=== PATIENT | male | born 1950 | race Caucasian/White ===

== ENCOUNTER 2017-02-12 22:02 | Observation (INO) | payer MEDICARE, MEDICAID ==
[2017-02-12] MEDS ORDERED: Sodium Chloride 0.9% 1,000 ML IV STA (22:48)
[2017-02-12] MEDS ORDERED: Morphine 2 mg/ml ISec IVP STA (22:48)
--- NOTE | 2017-02-12 22:50 | ED PDOC ---
Arrival/HPI - General Chief Complaint: Abdominal Pain Time Seen by Provider: 02/12/17 22:44 Historian: Patient, Family - History of Present Illness Narrative History of Present Illness (Text): 02/12/17 22:48 Barbara Mcmillan is a 66 year old male, with no significant past medical history, who presents to the ED complaining of nausea and vomiting. Patient states he has been experiencing nausea with associated vomiting, diarrhea, and LLQ pain since this morning. Patient also reports some dizziness. Patient denies any fever, chills, chest pain, shortness of breath, back pain, neck pain , or any other complaints. Symptom Onset: Gradual Symptom Course: Unchanged Activities at Onset: Light Context: Home Past Medical History - Provider Review Nursing Documentation Reviewed: Yes - Infectious Disease Hx of Infectious Diseases: None - Psychiatric Hx Substance Use: No - Anesthesia Hx Anesthesia: No Family/Social History - Physician Review Nursing Documentation Reviewed: Yes Family/Social History: Unknown Family HX Smoking Status: Never Smoked Hx Alcohol Use: No Hx Substance Use: No Allergies/Home Meds Allergies/Adverse Reactions: Allergies Penicillins Allergy (Unknown, Verified 05/23/16 15:00) Home Medications: Home Meds Medication Instructions Recorded Confirmed No Known Home Med 02/12/17 02/12/17 Review of Systems - Physician Review All systems were reviewed & negative as marked: Yes - Review of Systems Constitutional: Normal. absent: Fevers Eyes: Normal ENT: Normal Respiratory: Normal. absent: SOB, Cough Cardiovascular: Normal. absent: Chest Pain Gastrointestinal: Abdominal Pain, Diarrhea, Nausea, Vomiting Genitourinary Male: Normal. absent: Dysuria, Frequency, Hematuria, Urinary Output Changes Musculoskeletal: Normal. absent: Back Pain, Neck Pain Skin: Normal. absent: Rash Neurological: Dizziness Endocrine: Normal Hemo/Lymphatic: Normal Psychiatric: Normal Physical Exam Vital Signs Reviewed: Yes Vital Signs Temp Pulse Resp BP Pulse Ox 02/12/17 22:02 97.6 F 86 12 155/84 H 98 Temperature: Afebrile Blood Pressure: Normal Pulse: Regular Respiratory Rate: Normal Appearance: Positive for: Well-Appearing, Non-Toxic, Comfortable Pain Distress: None Mental Status: Positive for: Alert and Oriented X 3 - Systems Exam Head: Present: Atraumatic, Normocephalic Pupils: Present: PERRL Extroacular Muscles: Present: EOMI Conjunctiva: Present: Normal Mouth: Present: Moist Mucous Membranes Neck: Present: Normal Range of Motion Respiratory/Chest: Present: Clear to Auscultation, Good Air Exchange. No: Respiratory Distress, Accessory Muscle Use Cardiovascular: Present: Regular Rate and Rhythm, Normal S1, S2. No: Murmurs Abdomen: Present: Tenderness (LLQ tenderness), Normal Bowel Sounds. No: Distention, Peritoneal Signs Back: Present: Normal Inspection Upper Extremity: Present: Normal Inspection. No: Cyanosis, Edema Lower Extremity: Present: Normal Inspection. No: Edema Neurological: Present: GCS=15, CN II-XII Intact, Speech Normal Skin: Present: Warm, Dry, Normal Color. No: Rashes Psychiatric: Present: Alert, Oriented x 3, Normal Insight, Normal Concentration Medical Decision Making ED Course and Treatment: 02/12/17 22:48 Impression: 66 year old male c/o nausea, vomiting, diarrhea, LLQ pain, and dizziness today. Plan: -- CT Abdomen and Pelvis with IV contrast -- EKG -- Labs, lipase -- IV fluids -- Reassess and disposition Progress Notes: Reviewed EKG, NSR at 86 bpm. 1st degree AV block. Non-specific changes. 02/13/17 02:20 Reviewed radiology, CT Abdomen and Pelvis shows: Fatty liver; no acute solid visceral abnormality, no renal or ureteral stones or hydronephrosis; enterocolitis; nonspecific inflammation in the upper mesentery; bibasilar airspace disease atelectasis and/or infiltrate Additional findings as described above. 02/13/17 02:[address] Jamil, covering for Dr. Pate, who requests pt go to hospitalist service. 02/13/17 02:47 Case discussed with director medical science molten iron pourer, who is aware and agrees with plan. 02/13/17 02:[address] Rogers, who is aware and agrees with plan. Accepts pt in to hospitalist service. Pt will go [facility] observation for intractable abdominal pain. - Lab Interpretations Lab Results: 02/12/17 23:30 02/12/17 23:30 Lab Results 02/12/17 23:30: WBC 10.5, RBC 5.13, Hgb 15.4, Hct 44.5, MCV 86.7, MCH 30.0, MCHC 34.6, RDW 13.4, Plt Count 166, MPV 9.8 02/12/17 23:30: Sodium 139, Potassium 4.2, Chloride 103, Carbon Dioxide 27, Anion Gap 13, BUN 12, Creatinine 0.6, Est GFR ( Amer) > 60, Est GFR (Non- Af Amer) > 60, Random Glucose 139 H, Calcium 9.3, Total Bilirubin 0.9, AST 28, ALT 41, Alkaline Phosphatase 70, Total Protein 7.3, Albumin 4.3, Globulin 3.0, Albumin/Globulin Ratio 1.4, Lipase 51 I have reviewed the lab results: Yes - RAD Interpretation Narrative RAD Interpretations (Text): CT Abdomen and Pelvis shows: Lower thorax: Heart size is normal. There is airspace disease at the lung bases. There are no effusions. ABDOMEN: Liver: There is fatty infiltration of the liver. Gallbladder and bile ducts: Gallbladder is partially distended. Common duct is prominent. Pancreas: Pancreas is mildly atrophic. Spleen: Spleen is unremarkable. There is an accessory spleen in the left upper quadrant. Adrenals: unremarkable Kidneys and ureters: Kidneys and ureters are unremarkable. There no renal or ureteral stones. Stomach and bowel: Stomach is partially distended with fluid. There is an air- fluid level. There is mild duodenal wall and fold thickening and enhancement. Rotation is normal. There is a small fatty nodule at the duodenal jejunal junction, enteric contents versus lipoma. There is mild proximal jejunal wall and fold thickening. There is mild distention. Small bowel distention and wall thickening decreases distally. Terminal ileum is unremarkable. Appendix is not visualized.There is no pericecal inflammation. There is fatty infiltration of the cecal and ascending colon vu.Colon is incompletely distended which limits evaluation. There is scattered diverticulosis. There is mild distal sigmoid and rectal wall thickening Appendix: See stomach and bowel PELVIS: Bladder: unremarkable Reproductive: Seminal vesicles and prostate are unremarkable. ABDOMEN and PELVIS: Intraperitoneal space: There is no free air or free fluid. Bones/joints: There are degenerative changes in the osseus structures. Soft tissues: There is mild rectus diastases. Vasculature: There are vascular calcifications. Lymph nodes: There is no pathologic adenopathy. Other findings: There is mild increased attenuation in the upper mesentery. IMPRESSION: Fatty liver; no acute solid visceral abnormality, no renal or ureteral stones or hydronephrosis; enterocolitis; nonspecific inflammation in the upper mesentery; bibasilar airspace disease atelectasis and/or infiltrate Additional findings as described above. Radiology Orders: 02/12/17 22:49 ABD & PELVIS IV CONTRAST ONLY [CT] Stat Hobbing Machine Operator: Radiologist - EKG Interpretation Interpreted by ED Physician: Yes Type: 12 lead EKG - Medication Orders Current Medication Orders: Discontinued Medications Famotidine (Pepcid) 20 mg IVP STAT STA Stop: 02/12/17 22:49 Last Admin: 02/12/17 23:44 Dose: 20 mg Sodium Chloride (Sodium Chloride 0.9%) 1,000 mls @ 999 mls/hr IV .Q1H1M STA Stop: 02/12/17 23:48 Last Admin: 02/12/17 23:44 Dose: 999 mls/hr Iohexol (Omnipaque 350 100 Ml) Confirm Administered Dose 350 mg .ROUTE .STK-MED ONE Stop: 02/13/17 01:01 Morphine Sulfate (Morphine) 2 mg IVP STAT STA Stop: 02/12/17 22:49 Last Admin: 02/12/17 23:44 Dose: 2 mg Re-Assess: ADRIANA Pain Assessment Document 02/13/17 00:44 JOL (Rec: 02/13/17 01:50 JOL [id number]) Pain Reassessment Is this a pain reassessment? Yes Sleep Is patient sleeping during reassessment? No Presence of Pain Presence of Pain No Ondansetron HCl (Zofran Inj) 4 mg IVP ONCE ONE Stop: 02/12/17 22:49 Last Admin: 02/12/17 23:44 Dose: 4 mg - Marleniibradha Statement The provider has reviewed the documentation as recorded by the Sarmad Zee All medical record entries made by the Sarmad were at my direction and personally dictated by me. I have reviewed the chart and agree that the record accurately reflects my personal performance of the history, physical exam, medical decision making, and the department course for this patient. I have also personally directed, reviewed, and agree with the discharge instructions and disposition. Disposition/Present on Arrival - Present on Arrival Any Indicators Present on Arrival: No History of DVT/PE: No History of Uncontrolled Diabetes: No Urinary Catheter: No History of Decub. Ulcer: No History Surgical Site Infection Following: None - Disposition Have Diagnosis and Disposition been Completed?: Yes Diagnosis: Intractable abdominal pain, Enterocolitis Disposition: HOSPITALIZED Disposition Time: 02:53 Patient Plan: Observation Patient Problems: Current Active Problems Problem Status Onset Intractable abdominal pain Acute Condition: STABLE Referrals: Katlyn Tate MD [Primary Care Provider] - Follow up with primary Forms: [employer] (H[place]er)
[2017-02-12 23:55] LABS: ALB/GLOB RATIO 1.4 (1.1-1.8); ALKALINE PHOSPHATASE 70 U/L (38-126); ALT/SGPT 41 U/L (7-56); AST/SGOT 28 U/L (17-59); BILIRUBIN,TOTAL 0.9 mg/dL (0.2-1.3); BLOOD UREA NITROGEN 12 mg/dL (7-21); CALCIUM 9.3 mg/dL (8.4-10.5); CARBON DIOXIDE 27 mmol/L (21-33); CHLORIDE 103 mmol/L (98-107); GFR AFRICAN-AMERICAN > 60; GLUCOSE,RANDOM 139 mg/dL (70-110); LIPASE 51 U/L (23-300); POTASSIUM 4.2 mmol/L (3.6-5.0); SODIUM 139 mmol/L (132-148); TOTAL PROTEIN 7.3 g/dL (5.8-8.3)
[2017-02-12 23:59] LABS: HEMATOCRIT 44.5 % (42.0-52.0); WHITE BLOOD COUNT 10.5 10^3/ul (4.5-11.0)
[2017-02-13] LABS: MEAN CELL VOLUME 86.7 fl (80.0-105.0); MEAN CORPUSCULAR HGB CONC 34.6 g/dl (31.0-37.0); MEAN PLATELET VOLUME 9.8 fl (7.0-11.0); RED CELL DISTRIBUTION WIDTH 13.4 % (11.5-14.5)
[2017-02-13] MEDS ORDERED: Iohexol 350 MG/100 ML VIAL ONE (01:00)
--- NOTE | 2017-02-13 02:07 | CT ---
EXAM: CT Abdomen and Pelvis With Intravenous Contrast EXAM DATE/TIME: 02/12/2017 10:49 PM CLINICAL HISTORY: 66 years old, male; Pain; Abdominal pain; Flank; Left lower quadrant (llq); Additional info: Left lower abdominal pain TECHNIQUE: Axial computed tomography images of the abdomen and pelvis with intravenous contrast. All CT scans at this facility use one or more dose reduction techniques, viz.: automated exposure control; ma/kV adjustment per patient size (including targeted exams where dose is matched to indication; i.e. head); or iterative reconstruction technique. Coronal and sagittal reformatted images were created and reviewed. CONTRAST: 96 mL of OMNI 350 administered intravenously. COMPARISON: There are no prior studies for comparison. FINDINGS: Lower thorax: Heart size is normal. There is airspace disease at the lung bases. There are no effusions. ABDOMEN: Liver: There is fatty infiltration of the liver. Gallbladder and bile ducts: Gallbladder is partially distended. Common duct is prominent. Pancreas: Pancreas is mildly atrophic. Spleen: Spleen is unremarkable. There is an accessory spleen in the left upper quadrant. Adrenals: unremarkable Kidneys and ureters: Kidneys and ureters are unremarkable. There no renal or ureteral stones. Stomach and bowel: Stomach is partially distended with fluid. There is an air-fluid level. There is mild duodenal wall and fold thickening and enhancement. Rotation is normal. There is a small fatty nodule at the duodenal jejunal junction, enteric contents versus lipoma. There is mild proximal jejunal wall and fold thickening. There is mild distention. Small bowel distention and wall thickening decreases distally. Terminal ileum is unremarkable. Appendix is not visualized.There is no pericecal inflammation. There is fatty infiltration of the cecal and ascending colon vu.Colon is incompletely distended which limits evaluation. There is scattered diverticulosis. There is mild distal sigmoid and rectal wall thickening Appendix: See stomach and bowel PELVIS: Bladder: unremarkable Reproductive: Seminal vesicles and prostate are unremarkable. ABDOMEN and PELVIS: Intraperitoneal space: There is no free air or free fluid. Bones/joints: There are degenerative changes in the osseus structures. Soft tissues: There is mild rectus diastases. Vasculature: There are vascular calcifications. Lymph nodes: There is no pathologic adenopathy. Other findings: There is mild increased attenuation in the upper mesentery. IMPRESSION: Fatty liver; no acute solid visceral abnormality, no renal or ureteral stones or hydronephrosis; enterocolitis; nonspecific inflammation in the upper mesentery; bibasilar airspace disease atelectasis and/or infiltrate Additional findings as described above.
[2017-02-13] MEDS ORDERED: metroNIDAZOLE IV 500 mg/100 ml 500 MG/100 ML BAG IVPB STA (03:02)
[2017-02-13] MEDS ORDERED: Ciprofloxacin 400mg/200ml D5W 400 MG/200 ML BAG IV STA (03:02)
[2017-02-13] MEDS ORDERED: Morphine 2 mg/ml ISec IM PRN (03:35)
--- NOTE | 2017-02-13 03:44 | CP.PCM.HP ---
<Colton Mccloud - Last Filed: 02/13/17 03:57> History of Present Illness - History of Present Illness History of Present Illness: 66 yo korean speaking male with no significant PMH complaining of abdominal pain. He describes the pain as a sharp stabbing pain with a severity of 10/10. He states the pain is located in the left abdominal area and doesn't radiate and that it began 24 hours ago. He also says that he has N/V/diarrhea and dizziness. He described the vomit as being yellowish and watery. He stated the diarrhea was watery. He denies any blood in the vomit or stool. In addition the last thing he ate was 2 eggs with some cheese. He denies any SOB, CP, palpitations, fevers, chills, or back pain. PMH: none significant PSH: denies Social: denies alcohol or tobacco use FH: nothing significant allergies: Penicillin Medications: none Present on Admission - Present on Admission Any Indicators Present on Admission: No Review of Systems - Constitutional Constitutional: absent: Chills, Fever - EENT Eyes: absent: Loss of Vision Ears: absent: Ear Pain - Cardiovascular Cardiovascular: absent: Chest Pain, Diaphoresis, Dyspnea - Respiratory Respiratory: absent: Cough, Dyspnea - Gastrointestinal Gastrointestinal: Abdominal Pain, Diarrhea, Nausea, Vomiting - Neurological Neurological: Dizziness Past Patient History - Infectious Disease Hx of Infectious Diseases: None - Past Social History Smoking Status: Never Smoked - PSYCHIATRIC Hx Substance Use: No - SURGICAL HISTORY Hx Surgeries: No - ANESTHESIA Hx Anesthesia: No Meds Allergies/Adverse Reactions: Allergies Allergy/AdvReac Type Severity Reaction Status Date / Time Penicillins Allergy Unknown Verified 05/23/16 15:00 Physical Exam - Constitutional Appears: Non-toxic, No Acute Distress - Head Exam Head Exam: ATRAUMATIC, NORMAL INSPECTION, NORMOCEPHALIC - Eye Exam Eye Exam: Normal appearance, PERRL - Respiratory Exam Respiratory Exam: Clear to Auscultation Bilateral, NORMAL BREATHING PATTERN - Cardiovascular Exam Cardiovascular Exam: REGULAR RHYTHM, +S1, +S2 - GI/Abdominal Exam GI & Abdominal Exam: Tenderness Additional comments: tenderness to palpation in left upper and left lower quadrants - Extremities Exam Extremities exam: Negative for: pedal edema - Neurological Exam Neurological exam: Alert, Oriented x3 Results - Vital Signs Recent Vital Signs: Last Vital Signs Temp 97.6 F 02/12/17 22:02 Pulse 86 02/12/17 22:02 Resp 12 02/12/17 22:02 BP 155/84 H 02/12/17 22:02 Pulse Ox 98 02/12/17 22:02 - Labs Result Diagrams: 02/12/17 23:30 02/12/17 23:30 Assessment & Plan - Assessment and Plan (Free Text) Assessment: 66 yo male with no significant past medical history presenting with abdominal pain. He is being worked up for possible enterocolitis. Plan: 1. Abdominal Pain- likely due to viral cause -CT Abdomen and pelvis was ordered and obtained. CT showed a fatty liver, no visceral abnormality, but showed non specific inflammation of the upper mesentery. -patient put on NPO for bowel rest - CBC and chemistry ordered and obtained, no leukocytosis or electrolyte abnormalities -stool, urine and blood cultures ordered -NS @150ml/hr -Started on Flagyl 500 Q8H -Started on Cipro 400 q12H -started on morphine IV 2mg Q4H PRN -patient admitted to med surg <Jaden Rogers MD - Last Filed: 02/13/17 08:39> Results - Vital Signs Recent Vital Signs: Last Vital Signs Temp 98.1 F 02/13/17 08:33 Pulse 95 H 02/13/17 08:33 Resp 20 02/13/17 08:33 BP 144/87 02/13/17 08:33 Pulse Ox 97 02/13/17 08:33 - Labs Result Diagrams: 02/12/17 23:30 02/12/17 23:30 Attending/Attestation - Attestation I have personally seen and examined this patient.: Yes I have fully participated in the care of the patient.: Yes I have reviewed all pertinent clinical information: Yes Notes (Text): -I agree with the above H&P completed by the resident physician, with the following additions and/or changes: The patient is a 66 year old man with no significant past medical history who is being admitted for acute entercolitis (confirmed by CT scan). He will be started on empiric IV Cipro/Flagyl and aggressive IVF's. He will be kept NPO for bowel rest. IV Morphine and Zofran as needed for symptomatic relief.
[2017-02-13] MEDS ORDERED: metroNIDAZOLE IV 500 mg/100 ml 500 MG/100 ML BAG IVPB SCH ×2 (03:45→14:00)
[2017-02-13] MEDS ORDERED: Sodium Chloride 0.9% 1,000 ML IV SCH (03:45)
[2017-02-13 05:40] VITALS: RESP 20
[2017-02-13 08:34] VITALS: BP 144/87; PULSE 95; TEMP 98.1; O2SAT 97
[2017-02-13 09:51] LABS: BASO # 0.02 K/mm3 (0.0-2.0); BASO % 0.2 % (0.0-3.0); EOS # 0.1 (0.0-0.7); EOS % 0.6 % (1.5-5.0); GRAN # 8.82 (1.4-6.5); GRAN % 85.2 % (50.0-68.0); HEMATOCRIT 41.4 % (42.0-52.0); LYMPH # 0.7 (1.2-3.4); LYMPH % 6.7 % (22.0-35.0); MEAN CORPUSCULAR HEMOGLOBIN 30.3 pg (25.0-35.0); MEAN CORPUSCULAR HGB CONC 34.8 g/dl (31.0-37.0); MEAN PLATELET VOLUME 9.5 fl (7.0-11.0); MONO # 0.8 (0.1-0.6); MONO % 7.3 % (1.0-6.0); RED CELL DISTRIBUTION WIDTH 12.9 % (11.5-14.5); WHITE BLOOD COUNT 10.4 10^3/ul (4.5-11.0)
[2017-02-13 09:59] LABS: BLOOD UREA NITROGEN 9 mg/dL (7-21); CARBON DIOXIDE 26 mmol/L (21-33); CHLORIDE 103 mmol/L (95-110); GFR AFRICAN-AMERICAN > 60; GLUCOSE,RANDOM 96 mg/dL (70-110); POTASSIUM 3.6 mmol/L (3.6-5.0); SODIUM 139 mmol/L (132-148)
[2017-02-13] MEDS ORDERED: Ciprofloxacin 400mg/200ml D5W 400 MG/200 ML BAG IVPB SCH (10:00)
--- NOTE | 2017-02-13 10:10 | US ---
HISTORY: rule out cholycystitis COMPARISON: None. TECHNIQUE: Sonographic evaluation of the abdomen. FINDINGS: LIVER: Measures 14.4 cm. Diffusely increased echogenicity of the liver parenchyma. No mass. No intrahepatic bile duct dilatation. GALLBLADDER: Unremarkable. No gallstones. COMMON BILE DUCT: Measures 6 mm. No stones. No dilatation. PANCREAS: Limited visualization. No gross abnormality identified. RIGHT KIDNEY: Measures 10.0cm. Normal echogenicity. No calculus, mass, or hydronephrosis. LEFT KIDNEY: Measures 10.6cm. Normal echogenicity. No calculus, mass, or hydronephrosis. SPLEEN: Normal in size and contour. No mass. AORTA: No aneurysmal dilatation. IVC: Unremarkable. OTHER FINDINGS: None. IMPRESSION: Fatty infiltration of the liver. No evidence of cholelithiasis or cholecystitis.
--- NOTE | 2017-02-13 17:18 | CARD ---
APPROVED REPORT EKG Measurement Heart [id number] <Conclusion> Sinus rhythm with 1st degree AV block Otherwise normal ECG
--- NOTE | 2017-02-14 00:45 | CP.PCM.DIS ---
<OLEGARIO CHOI - Last Filed: 02/14/17 00:38> Provider - Provider Date of Admission: 02/13/17 03:03 Attending physician: Owen Flowers MD Primary care physician: Katlyn Tate MD Time Spent in preparation of Discharge (in minutes): 40 Hospital Course - Lab Results Lab Results: Most Recent Lab Values WBC 10.4 10^3/ul (4.5-11.0) 02/13/17 09:30 RBC 4.76 10^6/uL (3.5-6.1) 02/13/17 09:30 Hgb 14.4 g/dL (14.0-18.0) 02/13/17 09:30 Hct 41.4 % (42.0-52.0) L 02/13/17 09:30 MCV 87.0 fl (80.0-105.0) 02/13/17 09:30 MCH 30.3 pg (25.0-35.0) 02/13/17 09:30 MCHC 34.8 g/dl (31.0-37.0) 02/13/17 09:30 RDW 12.9 % (11.5-14.5) 02/13/17 09:30 Plt Count 147 10^3/uL (120.0-450.0) 02/13/17 09:30 MPV 9.5 fl (7.0-11.0) 02/13/17 09:30 Gran % 85.2 % (50.0-68.0) H 02/13/17 09:30 Lymph % (Auto) 6.7 % (22.0-35.0) L 02/13/17 09:30 [place] % (Auto) 7.3 % (1.0-6.0) H 02/13/17 09:30 Eos % (Auto) 0.6 % (1.5-5.0) L 02/13/17 09:30 Baso % (Auto) 0.2 % (0.0-3.0) 02/13/17 09:30 Gran # 8.82 (1.4-6.5) H 02/13/17 09:30 Lymph # 0.7 (1.2-3.4) L 02/13/17 09:30 [place] # 0.8 (0.1-0.6) H 02/13/17 09:30 Eos # 0.1 (0.0-0.7) 02/13/17 09:30 Baso # 0.02 K/mm3 (0.0-2.0) 02/13/17 09:30 Sodium 139 mmol/L (132-148) 02/13/17 09:30 Potassium 3.6 mmol/L (3.6-5.0) 02/13/17 09:30 Chloride 103 mmol/L (95-110) 02/13/17 09:30 Carbon Dioxide 26 mmol/L (21-33) 02/13/17 09:30 Anion Gap 14 (10-20) 02/13/17 09:30 BUN 9 mg/dL (7-21) 02/13/17 09:30 Creatinine 0.6 mg/dL (0.5-1.4) 02/13/17 09:30 Est GFR ( Amer) > 60 02/13/17 09:30 Est GFR (Non-Af Amer) > 60 02/13/17 09:30 Random Glucose 96 mg/dL (70-110) 02/13/17 09:30 Calcium 9.0 mg/dL (8.4-10.5) 02/13/17 09:30 Total Bilirubin 0.9 mg/dL (0.2-1.3) 02/12/17 23:30 AST 28 U/L (17-59) 02/12/17 23:30 ALT 41 U/L (7-56) 02/12/17 23:30 Alkaline Phosphatase 70 U/L (38-126) 02/12/17 23:30 Total Protein 7.3 g/dL (5.8-8.3) 02/12/17 23:30 Albumin 4.3 g/dL (3.0-4.8) 02/12/17 23:30 Globulin 3.0 gm/dL 02/12/17 23:30 Albumin/Globulin Ratio 1.4 (1.1-1.8) 02/12/17 23:30 Lipase 51 U/L (23-300) 02/12/17 23:30 - Hospital Course Hospital Course: 66 yo persian speaking male with no significant PMH complaining of abdominal pain. He describes the pain as a sharp stabbing pain with a severity of 10/10. He states the pain is located in the left abdominal area and doesn't radiate and that it began 24 hours ago. He also says that he has N/V/diarrhea and dizziness. He described the vomit as being yellowish and watery and had 3 episodes in total (the last being on admission in ED). He stated he had one episode of diarrhea @ 2AM the day prior to coming into ED that was watery. He denies any blood in the vomit or stool. In addition the last thing he ate was 2 fried eggs with some cheese. He denies any SOB, CP, palpitations, fevers, chills , or back pain. Patient was transferred to the med-surg floors for monitoring. Patient got Abd CT which showed fatty liver and inflammation of upper mesentery. Abd US also showed fatty infiltration of liver with no evidence of cholelithiasis/ cholecystitis. Pt received 2 dose of cipro and flagyl for empiric tx but r/o bacterial infection, and 1L IVF. Likely a viral gastroenteritis. Pt on morning of admission was resting calmly and denied any pain, n/v/d, fevers/chills, cp, abd pain, sob, dysuria. Pt will be d/c and recommended to stay hydrated and f/u PMD in 1-2 weeks. - Date & Time of H&P Date of H&P: 02/13/17 Time of H&P: 03:30 Discharge Exam - Head Exam Head Exam: ATRAUMATIC, NORMAL INSPECTION, NORMOCEPHALIC - Eye Exam Eye Exam: EOMI, Normal appearance, PERRL Pupil Exam: NORMAL ACCOMODATION - ENT Exam ENT Exam: Mucous Membranes Moist - Neck Exam Neck exam: Full Rom - Respiratory Exam Respiratory Exam: Clear to PA & Lateral, NORMAL BREATHING PATTERN. absent: Accessory Muscle Use, Rales, Rhonchi, Wheezes, Respiratory Distress - Cardiovascular Exam Cardiovascular Exam: RRR, +S1, +S2 - GI/Abdominal Exam GI & Abdominal Exam: Normal Bowel Sounds, Soft, Unremarkable. absent: Distended , Guarding, Organomegaly, Rebound, Tenderness - Extremities Exam Extremities exam: full ROM Additional comments: no pedal edema no calf tenderness - Neurological Exam Neurological exam: Alert, Normal Gait, Oriented x3 - Psychiatric Exam Psychiatric exam: Normal Affect, Normal Mood - Skin Skin Exam: Normal Color, Warm Discharge Plan - Follow Up Plan Condition: STABLE Disposition: HOME/ ROUTINE Instructions: Infectious Colitis (GEN) Additional Instructions: - Please follow up with your primary care doctor in 1-2 weeks - Stay hydrated - Stay away from spoiled food. - Please come back if the symptoms persists or worsens. Referrals: Katlyn Tate MD [Primary Care Provider] - <Owen Flowers MD - Last Filed: 02/14/17 16:04> Provider - Provider Date of Admission: 02/13/17 03:03 Attending physician: Owen Flowers MD Primary care physician: Katlyn Tate MD Hospital Course - Lab Results Lab Results: Most Recent Lab Values WBC 10.4 10^3/ul (4.5-11.0) 02/13/17 09:30 RBC 4.76 10^6/uL (3.5-6.1) 02/13/17 09:30 Hgb 14.4 g/dL (14.0-18.0) 02/13/17 09:30 Hct 41.4 % (42.0-52.0) L 02/13/17 09:30 MCV 87.0 fl (80.0-105.0) 02/13/17 09:30 MCH 30.3 pg (25.0-35.0) 02/13/17 09:30 MCHC 34.8 g/dl (31.0-37.0) 02/13/17 09:30 RDW 12.9 % (11.5-14.5) 02/13/17 09:30 Plt Count 147 10^3/uL (120.0-450.0) 02/13/17 09:30 MPV 9.5 fl (7.0-11.0) 02/13/17 09:30 Gran % 85.2 % (50.0-68.0) H 02/13/17 09:30 Lymph % (Auto) 6.7 % (22.0-35.0) L 02/13/17 09:30 [place] % (Auto) 7.3 % (1.0-6.0) H 02/13/17 09:30 Eos % (Auto) 0.6 % (1.5-5.0) L 02/13/17 09:30 Baso % (Auto) 0.2 % (0.0-3.0) 02/13/17 09:30 Gran # 8.82 (1.4-6.5) H 02/13/17 09:30 Lymph # 0.7 (1.2-3.4) L 02/13/17 09:30 [place] # 0.8 (0.1-0.6) H 02/13/17 09:30 Eos # 0.1 (0.0-0.7) 02/13/17 09:30 Baso # 0.02 K/mm3 (0.0-2.0) 02/13/17 09:30 Sodium 139 mmol/L (132-148) 02/13/17 09:30 Potassium 3.6 mmol/L (3.6-5.0) 02/13/17 09:30 Chloride 103 mmol/L (95-110) 02/13/17 09:30 Carbon Dioxide 26 mmol/L (21-33) 02/13/17 09:30 Anion Gap 14 (10-20) 02/13/17 09:30 BUN 9 mg/dL (7-21) 02/13/17 09:30 Creatinine 0.6 mg/dL (0.5-1.4) 02/13/17 09:30 Est GFR ( Amer) > 60 02/13/17 09:30 Est GFR (Non-Af Amer) > 60 02/13/17 09:30 Random Glucose 96 mg/dL (70-110) 02/13/17 09:30 Calcium 9.0 mg/dL (8.4-10.5) 02/13/17 09:30 Total Bilirubin 0.9 mg/dL (0.2-1.3) 02/12/17 23:30 AST 28 U/L (17-59) 02/12/17 23:30 ALT 41 U/L (7-56) 02/12/17 23:30 Alkaline Phosphatase 70 U/L (38-126) 02/12/17 23:30 Total Protein 7.3 g/dL (5.8-8.3) 02/12/17 23:30 Albumin 4.3 g/dL (3.0-4.8) 02/12/17 23:30 Globulin 3.0 gm/dL 02/12/17 23:30 Albumin/Globulin Ratio 1.4 (1.1-1.8) 02/12/17 23:30 Lipase 51 U/L (23-300) 02/12/17 23:30 Attending/Attestation - Attestation I have personally seen and examined this patient.: Yes I have fully participated in the care of the patient.: Yes I have reviewed all pertinent clinical information, including history, physical exam and plan: Yes Notes (Text): 02/14/17 16:02 Patient was seen and examined with medical technician assistant. Agreed with resident assessment and plan. 66 y male with no significant PMH complaining of abdominal pain, nausea , vomiting and diarhhea.Patient symptoms has resolved, was likely due to viral gastroenteritis.He is tolerating food.He will be discharged home and will follow up with PCP. Management plan was discussed in detail with patient Education was provided.
== END 2017-02-13 16:29 | disposition home or self-care (01) ==
LOC: ED 22:02 → ERH 02-13 03:03 → 3RSO 02-13 04:52
PROVIDERS: ADMIT Internal Medicine; ATTEND Internal Medicine
DX: R19.7 Diarrhea, unspecified (principal); R11.2 Nausea with vomiting, unspecified; R42 Dizziness and giddiness; K76.0 Fatty (change of) liver, not elsewhere classified
CPT/HCPCS: 74177; 76700; 80048; 80053; 83690; 85025; 85027; 87040; 93005; 96361; 96365; 96375; 99285; C9113; G0378; J0744; J2270; J2405; J7040; Q9967